=== PATIENT | male | born 1960 | race Caucasian/White ===

== ENCOUNTER 2018-11-01 08:58 | Inpatient (IN) ==
[2018-10-26 16:18] LABS: Appearance,Urine CLEAR; Bilirubin,Urine NEG (NEG); Color,Urine STRAW; Glucose,Urine (UA) NEGATIVE (NEG); Leukocyte Esterase,Urine NEG /uL (NEG); Protein,Urine NEG (NEG); Specific Gravity,Urine 1.015 (1.000-1.035); Urine Blood NEG mg/dL (<0.03); Urobilinogen,Urine NEG (NEG)
[2018-10-26 17:19] LABS: Blood Urea Nitrogen 21 mg/dl (6-20)
[2018-10-26 17:27] LABS: Basophils # (Auto) 0 K/mcL (0.0-0.3); Basophils % (Auto) 0.3 % (0.0-2.0); Eosinophils # (Auto) 0 K/mcL (0.0-0.7); Eosinophils % (Auto) 0.2 % (0.0-7.0); Lymphocytes # (Auto) 1.4 K/mcL (1.5-4.8); Lymphocytes % (Auto) 14.9 % (15.5-49.0); Mean Cell Volume 88.1 fL (80.0-100.0); Mean Corpuscular HGB Conc 31.7 g/dL (31.0-36.0); Monocytes # (Auto) 0.6 K/mcL (0.1-0.9); Monocytes % (Auto) 6.6 % (1.0-12.0); Platelet Count 312 K/mcL (140-440); RBC 4.66 M/mcL (4.50-5.90); Red Cell Distribution Width 14.8 % (11.5-14.5)
[2018-10-26 18:42] LABS: Estimated Average Glucose(eAG) 108 mg/dL; Hemoglobin A1C 5.4 % HGB (4.0-6.0)
[~2018-11-01 08:58] MED LIST: CELECOXIB 200 MG CAPSULE PO SCH; HEPARIN 20,000 UNIT/ML VIAL IR ONE; PREGABALIN 75 MG CAPSULE PO SCH; ceFAZolin 2 GM in DEXTROSE 5% IN WATER 50 ML IV SCH; oxyCODONE 10 MG TAB.ER.12H PO SCH
[2018-11-01] MEDS ORDERED: DEXAMETHASONE 4 MG/ML VIAL IV ONE (10:55)
[2018-11-01] MEDS ORDERED: LIDOCAINE HCL/PF 100 MG/5 ML SYRINGE IV ONE (10:55)
[2018-11-01] MEDS ORDERED: PROPOFOL 200 MG/20 ML VIAL IV ONE (10:55)
[2018-11-01] MEDS ORDERED: PHENYLEPHRINE 10 MG/ML VIAL IV ONE (10:55)
[2018-11-01] MEDS ORDERED: MIDAZOLAM 2 MG/2 ML VIAL IV ONE (10:55)
[2018-11-01] MEDS ORDERED: TRANEXAMIC ACID 1,000 MG/10 ML VIAL IV ONE (10:55)
[2018-11-01] MEDS ORDERED: ePHEDrine 50 MG/ML AMPUL IV ONE (10:55)
[2018-11-01] MEDS ORDERED: ONDANSETRON 4 MG/2 ML VIAL IV PRN ×2 (12:18→12:38)
[2018-11-01] MEDS ORDERED: MAGNESIUM HYDROXIDE 30 ML ORAL.SUSP PO PRN (12:18)
[2018-11-01] MEDS ORDERED: BENZOCAINE/MENTHOL 1 LOZENGE PO PRN ×2 (12:18→12:38)
[2018-11-01] MEDS ORDERED: TRANEXAMIC ACID 1,000 MG/10 ML VIAL IV SCH (12:18)
[2018-11-01] MEDS ORDERED: BISACODYL 10 MG SUPP.RECT PR PRN (12:18)
[2018-11-01] MEDS ORDERED: POLYETHYLENE GLYCOL 3350 17 GM PACKET PO PRN (12:18)
[2018-11-01] MEDS ORDERED: FLEETS ADULT ENEMA PR PRN (12:18)
[2018-11-01] MEDS ORDERED: KETOROLAC 30 MG/ML VIAL IV PRN (12:18)
--- NOTE | 2018-11-01 12:18 | Brief Operative Note ---
Date of procedure: 11/01/18 Pre-op diagnosis: Right hip AVN Post-op diagnosis: same Procedure: Right anterior total hip arthroplasty Grafts/Implants: Yes (Depuy Actis 7 HO, +1.5 36 delta head, 52 cup, neutral altrx liner) Anesthesia: spinal, GLMA Findings: large effusion, necrotic femoral head Complications: none Surgeon: Dima Holguin Medical Claims Specialist: Aman Ward Estimated blood loss (cc): 150 Specimens Removed/Pathology: none sent Condition: stable Disposition: PACU
[2018-11-01] MEDS ORDERED: diphenhydrAMINE 50 MG/ML VIAL IV PRN (12:38)
[2018-11-01] MEDS ORDERED: NALOXONE HCL 0.4 MG/ML VIAL IV PRN (12:38)
[2018-11-01] MEDS ORDERED: ACETAMINOPHEN 1,000 MG/100 ML BOTTLE IV ONE (12:38)
[2018-11-01] MEDS ORDERED: LACTATED RINGERS 250 ML IV PRN (12:38)
[2018-11-01] MEDS ORDERED: FLUMAZENIL 0.1 MG/ML ML IV PRN (12:38)
[2018-11-01] MEDS ORDERED: MEPERIDINE 25 MG/ML SYRINGE IV PRN (12:38)
[2018-11-01] MEDS ORDERED: IPRATROPIUM/ALBUTEROL 3 ML AMPUL.NEB NEB PRN (12:38)
[2018-11-01] MEDS ORDERED: PROMETHAZINE 25 MG/ML VIAL IV PRN (12:38)
[2018-11-01] MEDS ORDERED: LACTATED RINGERS 1,000 ML IV SCH (12:45)
[2018-11-01] MEDS: fentaNYL 100 MCG/2 ML VIAL IV PRN ×4 (12:54→13:02)
--- NOTE | 2018-11-01 13:11 | Operative Note ---
DATE OF OPERATION: 11/01/2018 PREOPERATIVE DIAGNOSIS: Right hip severe avascular necrosis. POSTOPERATIVE DIAGNOSIS: Right hip severe avascular necrosis. PROCEDURE PERFORMED: Right anterior total hip arthroplasty placing a DePuy Actis size 7 high offset femoral stem, a +1.5, 36 mm delta ceramic head ball, a 52 no-hole [place] cup with a neutral AltrX liner. SURGEON: Dima Holguin MD SPECIAL EFFECTS SPECIALIST: Mitch Ward PA-C ANESTHESIA: Spinal plus general. DRAINS: None. SPECIMENS: Femoral head which was discarded. BLOOD LOSS: 200 mL COMPLICATIONS: None. POSTOPERATIVE CONDITION: Stable. INDICATIONS FOR SURGERY: This is a 58-year-old male who had progressive worsening right hip pain. He is on chronic oral corticosteroids. X-rays showed avascular necrosis with femoral head collapse. FINDINGS AT SURGERY: He had necrotic femoral head with delaminated cartilage, large joint effusion. Post implantation showed good gnosticist of leg length and offset. PROCEDURE IN DETAIL: The patient had been seen preoperatively and informed consent had been obtained after discussion of risks and benefits of surgery. Risks including, but not limited to, bleeding, possibly requiring transfusion; infection, possibly requiring implant removal and prolonged IV antibiotics; injury to nerves, blood vessels, and other surrounding structures; anesthetic risks; incomplete or no resolution of symptoms; leg length discrepancy; dislocation; fracture; DVT and pulmonary embolus risks; and the possibility of needing further revision joint surgery. He understood these risks and wished to proceed. Correct operative site was marked and the patient received spinal anesthesia. He was then taken to the operating room and LMA general given. He was carefully positioned on the fracture table and the right hip and groin were then carefully prepped and draped in normal sterile fashion. Timeout was performed verifying patient name, operative site, and plan. Ioban was used to cover all skin surfaces and a standard anterior approach incision was made with a scalpel through skin and subcutaneous tissue. Hemostasis was obtained with Bovie cautery. Blunt dissection was taken down on the tensor fascia and this was undermined circumferentially. We irrigated with IrriSept and then a ring retractor was placed. Tensor fascia was incised in line with the muscle fibers and then careful blunt dissection was taken medial to the muscle belly. Blunt cobra retractors were placed on the superior and inferior neck and then circumflex vessels were coagulated and cut and vastus fascia split distally. Capsule incision was made and a large joint effusion was aspirated. We performed an anterior capsulectomy and then Cobras were placed on the superior and inferior neck and we released capsule out to the lesser and greater trochanters. A corkscrew was placed in the femoral head and the bone was noted to be necrotic with a very poor fixation of the corkscrew. Fluoro was brought in and osteotome used to identify our neck cut level. We then made our neck cut and the femoral head was removed. Acetabulum was exposed and labrum excised circumferentially as well as soft tissue from the floor. We then started reaming directly medial to the teardrop under fluoro and then increased reamer size and angle until a 51 reamer got rim ream. We trialed the 51 and got good press-fit, so a 52 no-hole [place]atham cup was opened. We manually impacted the cup at approximately 40 degrees of inclination and 25 degrees of anteversion. We got good pressfit. We went ahead and placed a center hole cover. Anterior and inferior osteophytes were removed with a curved osteotome and then a neutral AltrX liner was carefully aligned and impacted. Tabs were checked to be flush circumferentially. We then removed traction from the leg and externally rotated. We released the capsule around the medial and posterior neck and then the leg was extended and adducted. Capsule was released out to the greater trochanter with a Bovie and then once we had adequate exposure, we started preparing the femur with a box osteotome followed by the awl to identify the canal trajectory. Rongeur and rasp were used to lateralize. We then began sequentially broaching with the [id number] up to a size 6, which seated our neck cut. We trialled a high offset neck with a +1.5 head ball. The hip was reduced without excessive tension. AP pelvis was taken to verify neutral rotation and AP of the nonoperative and operative hips were overlaid. Our leg lengths and offset were equal. The stem appeared slightly undersized and in slight varus, so I went ahead and redislocated. I removed the trial and used the rongeur and rasp to lateralize more. We then rebroached with a 6 and it seated below the neck cut, so we went up to a size 7, which seated right at the neck cut. We removed the trial. A 7 high offset Actis stem was opened. Femoral canal was irrigated with IrriSept, after a minute pulse was with saline and then the stem was impacted down. It seated on the neck cut, so we went ahead and opened a +1.5 head ball. The stem was carefully cleaned and dried and the head ball briskly impacted. Hip was reduced again without excessive tension. Final fluoro images were taken and saved and printed. We irrigated with IrriSept, after a minute pulse lavaged with saline. A #1 Vicryl running stitch was used to close the tensor fascia. A ring retractor was removed and IrriSept irrigated again and after a minute pulse lavaged with saline and then fat was tacked to fascia with Vicryl and 2-0 Monocryl used for subcutaneous and hiren for skin. Xeroform sterile dressings were applied. The patient was then awakened, extubated, and transferred to recovery in satisfactory condition. [email or web address] Job ID: [id number] Doc ID: [id number] Dima Holguin MD
--- NOTE | 2018-11-01 13:14 | XRay Report ---
CLINICAL INFORMATION: Right hip replacement TECHNIQUE: 0.2 minutes fluoroscopy utilized by Dr. Holguin. Multiple spot films obtained. Right total hip arthroplasty performed. IMPRESSION: Intraoperative fluoroscopy and spot films. Right total hip arthroplasty. Interpreted and Authenticated by: Ian Arauz 11/01/18
[2018-11-01] MEDS: 0.9 % SODIUM CHLORIDE 1,000 ML IV SCH ×2 (13:40→23:00)
[2018-11-01] MEDS: 0.9 % SODIUM CHLORIDE 10 ML SYRINGE IV SCH ×2 (13:44→20:30)
--- NOTE | 2018-11-01 13:44 | XRay Report ---
CLINICAL INFORMATION: Right hip replacement TECHNIQUE: AP pelvis. AP and crosstable lateral right hip COMPARISON: Previous right hip dated 07/12/2018 FINDINGS: Status post right total hip arthroplasty. Prosthetic compliments are in anatomic positions. There is postsurgical soft tissue gas. There are skin hiren anteriorly IMPRESSION: Status post right total hip arthroplasty Interpreted and Authenticated by: Ian Arauz 11/01/18
[2018-11-01] MEDS: HYDROcodone/APAP 10/325MG TABLET PO PRN (17:27)
[2018-11-01] MEDS: ceFAZolin 1 GM VIAL IV SCH (18:53)
[2018-11-01] MEDS: DOCUSATE SODIUM 100 MG CAPSULE PO SCH (20:29)
[2018-11-01] MEDS: ASPIRIN 325 MG ENTERIC COATED TABLET PO SCH (20:29)
[2018-11-01] MEDS ORDERED: SENNOSIDES 1 TABLET PO SCH (21:00)
[2018-11-02] MEDS: HYDROcodone/APAP 10/325MG TABLET PO PRN ×4 (00:36→10:03)
[2018-11-02] MEDS: ceFAZolin 1 GM VIAL IV SCH (02:50)
[2018-11-02] MEDS: 0.9 % SODIUM CHLORIDE 10 ML SYRINGE IV SCH (05:04)
--- NOTE | 2018-11-02 07:35 | Discharge Summary ---
Providers - Providers Patient information: Note initiated : 11/02/18 at 7:33 am Service Date, if different from initiated Date: [] Patient: Axel Elias 58 y/o M admitted on 11/01/18 for Right Anterior Total Hip Arthroplasty. Chief Complaint: [] Discharge date: 11/02/18 Hospitalization Hospital course: Pt was admitted for a R direct anterior total hip arthroplasty. Pt underwent the procedure on the day of admission. Pt spent one night on the flooor for IV pain meds, IV abx, and PT. Pt discharged to home with ASA for DVT prophylaxis. Pt will attend out-pt PT. Discharge diagnosis: R hip OA Exam - Exam Clean and dry: Yes Weight bearing status: as tolerated Ortho Discharge - THOR - Patient Instructions Diet: Regular Diet Activity: activity as tolerated Total Hip Protocol: Follow activity instructions as provided by Physical Therapy. Dressing Care: May shower in 2 days - Follow Up Plan Follow Up Appointments: Aman Ward PA-C [Physician [facility] Specialist] - 11/16/18 11:20 am Disposition: Home, Self-Care Prognosis: Good Rehab Potential: Good Overall status at discharge: patient is progressing back to baseline - Orders For Discharge Prescriptions: Aspirin [Ecotrin] 325 mg PO BID #60 tab.ec HYDROcodone/APAP 10/325MG [[place] 10-325Mg] 1 - 2 tab PO Q4HP PRN #80 tab PRN Reason: Pain Level 3-6 Pending Studies Resuscitation Status Full Code Diet Regular Diet Start TueNov 01 1219 Hydrocodone Bitart/Acetaminophen ([place] 10/325mg) 0 tab PO Q4HP PRN PRN Reason: PAIN LEVEL 3-6 Last Admin: 11/02/18 07:21 Dose: 1 tab Documented by: Admin: 11/02/18 05:03 Dose: 1 tab Documented by: Admin: 11/02/18 00:36 Dose: 1 tab Documented by: Admin: 11/01/18 17:27 Dose: 1 tab Documented by: [email or web address] Aspirin (Ecotrin) 325 mg PO BID [facility] Last Admin: 11/01/18 20:29 Dose: 325 mg Documented by: AMANDA Docusate Sodium (Colace) 100 mg PO BID [facility] Last Admin: 11/01/18 20:29 Dose: Not Given Documented by: AMANDA Ketorolac Tromethamine (Toradol) 30 mg IV Q6HP PRN PRN Reason: Pain Stop: 11/03/18 12:19 Last Admin: 11/01/18 14:05 Dose: 30 mg Documented by: TRAVON Morphine Sulfate (Morphine) 0 mg IV Q1HP PRN PRN Reason: PAIN LEVEL > 6 Last Admin: 11/01/18 13:40 Dose: 2 mg Documented by: [email or web address] Senna (Senokot) 2 tab PO HS SAM Last Admin: 11/01/18 20:30 Dose: Not Given Documented by: AMANDA Sodium Chloride (Saline Flush) 10 ml IV Q8 SAM Last Admin: 11/02/18 05:04 Dose: 10 ml Documented by: Admin: 11/01/18 20:30 Dose: Not Given Documented by: Admin: 11/01/18 13:44 Dose: Not Given Documented by: [email or web address] Shift Summary 11/02/18 03:43 Shift Summary by Angélica Cole slept some tonight. Was up in halls twice yesterday w/PT. Has been to [facility] tonight to void, QS. States pain in hip much less than it was before surgery; has had pain meds once for me, and will get another just before shift change to be ready for PT this morning. Moves self in bed w/minimal increase in hip pain. Will probably d/c home today. Initialized on 11/02/18 03:43 - END OF NOTE
[2018-11-02] MEDS ORDERED: predniSONE 10 MG TABLET PO SCH (08:00)
[2018-11-02] MEDS ORDERED: CYANOCOBALAMIN (VITAMIN B-12) 500 MCG TABLET PO SCH (09:00)
[2018-11-02] MEDS ORDERED: MAGNESIUM OXIDE 400 MG TABLET PO SCH (09:00)
[2018-11-02] MEDS: ASPIRIN 325 MG ENTERIC COATED TABLET PO SCH (09:06)
[2018-11-02] MEDS: DOCUSATE SODIUM 100 MG CAPSULE PO SCH (09:06)
[2018-11-02] MEDS ORDERED: POTASSIUM CHLORIDE 10 MEQ TABLET PO SCH (12:00)
== END 2018-11-02 10:15 | disposition home or self-care (01) | DRG 470 ==
LOC: MEDSUR 08:58
PROVIDERS: ADMIT Orthopaedic Surgery; ATTEND Orthopaedic Surgery